=== PATIENT | female | born 1945 | race Caucasian/White ===

== ENCOUNTER → 2017-01-13 15:21 | Outpatient (CLI) | payer MEDICARE, BC ==
[2012-05-27 06:08] VITALS: BMI 29.2
[2017-01-13 16:38] LABS: APPEARANCE CLEAR (CLEAR); BILIRUBIN NEGATIVE (NEGATIVE); COLOR YELLOW (YELLOW); GLUCOSE NEGATIVE (NEGATIVE); KETONE NEGATIVE (NEGATIVE); LEUKOCYTE ESTERASE NEGATIVE (NEGATIVE); NITRITE NEGATIVE (NEGATIVE); PROTEIN NEGATIVE (NEGATIVE); UROBILINOGEN NORMAL (NORMAL)
== END | disposition home or self-care (01) ==
LOC: D.LABREF 15:21
PROVIDERS: Urology
DX: R10.2 Pelvic and perineal pain (principal); N30.10 Interstitial cystitis (chronic) without hematuria

== ENCOUNTER → 2017-02-10 19:43 | Outpatient (CLI) | payer MEDICARE, BC ==
[2012-05-27 06:08] VITALS: BMI 29.2
== END | disposition home or self-care (01) ==
LOC: D.LABREF 19:43
DX: N39.0 Urinary tract infection, site not specified (principal)

== ENCOUNTER → 2017-04-01 20:31 | Outpatient (CLI) | payer MEDICARE, BC ==
[2012-05-27 06:08] VITALS: BMI 29.2
== END | disposition home or self-care (01) ==
LOC: D.LABREF 20:31
DX: N39.0 Urinary tract infection, site not specified (principal)

== ENCOUNTER → 2017-04-06 19:15 | Outpatient (CLI) | payer MEDICARE, BC ==
[2012-05-27 06:08] VITALS: BMI 29.2
[2017-04-06 19:47] LABS: APPEARANCE CLEAR (CLEAR); BILIRUBIN NEGATIVE (NEGATIVE); COLOR YELLOW (YELLOW); GLUCOSE NEGATIVE (NEGATIVE); KETONE NEGATIVE (NEGATIVE); LEUKOCYTE ESTERASE NEGATIVE (NEGATIVE); NITRITE NEGATIVE (NEGATIVE); PROTEIN NEGATIVE (NEGATIVE); UROBILINOGEN NORMAL (NORMAL)
== END | disposition home or self-care (01) ==
LOC: D.LABREF 19:15
PROVIDERS: Urology
DX: N39.0 Urinary tract infection, site not specified (principal)

== ENCOUNTER 2017-10-14 16:18 | Outpatient (CLI) | payer MEDICARE, BC ==
[~2017-10-14 16:18] MED LIST: ACETAMINOPHEN500 M1 PO; ASPIRIN EC81 M1 PO; FISH OIL 1,2001 CAP PO; HYDROCHLOROTH12.5 M1 PO; MELATONIN 3 MG1 TAB PO; MOBIC7.5 MG PO; MULTIPLE VITAMI1 TA1 PO; PROPAFENONE HC225 MG PO; SYNTHROID25 MCG PO; ULTRAM50 MG PO; VITAMIN D2000 UNIT PO; ZEBETA10 MG PO; [UNRECOGNIZED DRUG - OTHER] PO
== END 2017-10-14 23:59 | disposition home or self-care (01) ==
LOC: D.OPS 16:18
DX: M25.311 Other instability, right shoulder (principal); Z01.810 Encounter for preprocedural cardiovascular examination; Z01.811 Encounter for preprocedural respiratory examination; Z01.812 Encounter for preprocedural laboratory examination; Z53.9 Procedure and treatment not carried out, unspecified reason

== ENCOUNTER 2017-10-29 05:51 | Day surgery (SDC) | payer MEDICARE, BC ==
[2017-10-14 09:35] LABS: HEMATOCRIT 42.3 % (36.0-48.0); HEMOGLOBIN 14.5 g/dL (12-16); MCHC 34.3 g/dL (31.0-37.0); MCV 96.4 fL (80.0-100.0); MEAN PLATELET VOLUME 9.4 fL (7.4-10.4); RBC 4.39 10x6/uL (4.00-5.40); RDW 11.5 % (11.5-14.5); WBC 4.3 10x3/uL (4.8-10.8)
--- NOTE | ~2017-10-29 | OP ---
PATIENT NAME: ADRIANA PAVON MEDICAL RECORD: [id number] LOCATION:D.OPS ADMISSION DATE: SURGEON: KACEY JENSEN MD DATE OF OPERATION: 10/29/2017 PREOPERATIVE DIAGNOSIS: Right shoulder instability with Bankart lesion. POSTOPERATIVE DIAGNOSIS: Right shoulder instability with Bankart lesion. PROCEDURE: Open Bankart repair. SURGEON: Kacey Jensen MD ANESTHESIA: General. INTRAOPERATIVE COMPLICATIONS: None. SUMMARY OF PATHOLOGIC FINDINGS: The patient had missed a small portion of the anterior inferior aspect of the ____ type lesion. She was grossly unstable at the time of examination under anesthesia. OPERATIVE SUMMARY IN DETAIL: After obtaining the appropriate preoperative orthopedic surgery consent as well as anesthetic consultation, evaluation and clearance, the patient was brought to the operating room and placed on the operating table in supine position. After general laryngeal mask was administered, the patient was placed in the beach chair position All pressure points were well padded. She was held firmly to the operating table using the vacuum pack suction system. Right upper extremity and shoulder were prepped and draped in a routine sterile fashion. An arm was held in the Trimano arm holding device. Deltopectoral incision was taken down and clavipectoral fascia was incised. Conjoined tendon was gently retracted medially and the deltoid was held lateral using a brown retractor. Subscapularis was taken down and from the capsule. Each were tagged and the brown was removed. Fukuda retractor was then used to gently retract the humeral head and the glenoid pathology as described above was noted. Small rongeurs and a bur were utilized to prepare the anterior inferior aspect of the glenoid for reapproximation. A 3.0 suture tacks were placed at the 6 o'clock, 5:30, and 3 o'clock position. The tails of which were passed through the labrum and through the capsule while the capsule was held very taut and they were tied over the capsule labral complex. Having completed this, the capsule was then advanced and an imbricated suture superiorly and laterally was held in place with a 4.75 SwiveLock from [employer]. Lastly, the subscapularis was slightly advanced while it was reapproximated across the top at the subscapularis, supraspinatus tendinous junction, and then reapproximated at the bicipital groove. Having completed this, the wound was copiously irrigated and closed with #1 Vicryl followed by 2-0 Vicryl and skin jossue. Sterile dressings were applied. The patient was awakened, taken to recovery room in stable condition. All final needle and sponge counts were correct. TRANSINT:[id number] Voice Confirmation ID: [id number] DOCUMENT ID: [id number] OPERATIVE REPORT [id number] ADRIANA PAVON MD, KACEY MARTINEZ at 0912 CC: [id number] DICTATION DATE: 10/29/17 1123 WOOD FINISHER: 10/29/17 1725 [facility] [place] 10/29/17 [id number] [place] [address]
[2017-10-29 06:23] LABS: HEMOGLOBIN 15.4 g/dL (12-16); MCH 32.7 pg (26.0-34.0); MCHC 34.2 g/dL (31.0-37.0); MCV 95.5 fL (80.0-100.0); MEAN PLATELET VOLUME 9.5 fL (7.4-10.4); RBC 4.71 10x6/uL (4.00-5.40); RDW 11.8 % (11.5-14.5); WBC 5.8 10x3/uL (4.8-10.8)
[2017-10-29 06:55] VITALS: BP 153/91; BMI 27.8
== END 2017-10-29 13:30 | disposition home or self-care (01) ==
LOC: D.OPS 05:51
PROVIDERS: Anesthesiology
DX: M25.311 Other instability, right shoulder (principal); I48.91 Unspecified atrial fibrillation; E03.9 Hypothyroidism, unspecified; I49.5 Sick sinus syndrome; Z01.812 Encounter for preprocedural laboratory examination